=== PATIENT | male | born 1970 | race Hispanic/Latino ===

== ENCOUNTER 2018-02-12 07:50 | Emergency (ER) | payer OTHER ==
[~2018-02-12] VITALS: Ht 180.3 cm; Wt 93.0 kg
[~2018-02-12 07:50] MED LIST: CRESTOR PO; SYNTHROID200 MCG PO; VITAMIN D PO
--- OUTSIDE RECORDS SUMMARY | 2018-02-12 07:54 | XMS REPORT | Continuity of Care Document ---
Author Author [facility] Interface Address Unknown Phone Unavailable Problems Problem Status Onset Date Classification Date Reported Comments Source KUB Active 11/28/2017 [facility] N20.0 Active 06/02/2016 [facility] 592.0 - CALCULUS OF KID Active 01/14/2014 [facility] [place] Medications Medication Details Route Status Patient Instructions Ordering Provider Order Date Source Allergies, Adverse Reactions, Alerts Substance Category Reaction Severity Reaction type Status Date Reported Comments Source tequin Assertion nausea, fever, abd. cramps Propensity to adverse reactions to drug Active [facility] Immunizations Immunization Date Given Site Status Last Updated Comments Source Results Order Name Results Value Reference Range Date Interpretation Comments Source Abdomen AP DX Abdomen AP DX KUB: Small bilateral calyceal stones are unchanged compared to the previous KUB on 06/02/2016. There are small amorphous calcifications overlying the lower right paravertebral region. Gastrointestinal elmo in the cecal region are seen consistent with appendectomy. There is moderate fecal material in the right colon. The abdominal gas pattern is otherwise within normal limits. There are no significant osseous abnormalities. There is no other significant change. [id number] 11/28/2017 - - Read by: Dl Zamora MD Dictated Date/time: 11/28/17 11:23 Electronically Signed by: Dl Zamora MD 11/28/17 11:26 FINAL REPORT [facility] Abdomen AP DX Abdomen AP DX Study: Abdomen AP DX Clinical Indication: kidney stone; Comparison: Abdomen 03/06/[address] stone 03/05/2012 FINDINGS: Supine image demonstrates multiple small calcifications located to the right of the lower lumbar spine. Is likely represent calcified mesenteric lymph nodes at CT. There is a possible small left lower pole renal calculus. Bowel gas pattern is normal. The skeleton is normal. : [id number] 06/02/2016 - - Read by: Zafar Dos Santos MD Dictated Date/time: 06/02/16 15:11 Electronically Signed by: Zafar Dos Santos MD 06/02/16 15:14 FINAL REPORT [facility] Vital Signs Vital Sign Value Date Comments Source Encounters Location Location Details Encounter Type Encounter Number Reason For Visit Attending Provider ADM Date DC Date Status Source [facility] Outpatient [id number] Heribertotorres Garg 06/02/2016 06/03/2016 [facility] Procedures Procedure Code Date Perfomer Comments Source
--- OUTSIDE RECORDS SUMMARY | 2018-02-12 07:54 | XMS REPORT | Summary of Care ---
Author Author [facility] Organization [facility] Address Unknown Phone Unavailable Encounter HQ Encntr_alias(FIN) [id number] Date(s): 06/02/16 - 06/02/16 [facility] [address] [place] [address]- [phone] Discharge Disposition: Home or Self Care Attending Physician: Heriberto Garg MD Vital Signs No data available for this section Problem List No data available for this section Allergies, Adverse Reactions, Alerts Substance Reaction Severity Status NKDA Active tequin nausea Active fever abd. cramps Medications No data available for this section Results No data available for this section Immunizations No data available for this section Procedures No data available for this section Social History No data available for this section Assessment and Plan No data available for this section
[2018-02-12 08:18] LABS: BILIRUBIN,URINE NEGATIVE (NEGATIVE); CLARITY,URINE CLEAR (CLEAR); COLOR,URINE YELLOW (YELLOW); KETONES,URINE NEGATIVE (NEGATIVE); LEUKOCYTE ESTERASE ,URINE NEGATIVE (NEGATIVE); NITRITE,URINE NEGATIVE (NEGATIVE); PROTEIN,URINE DIPSTICK NEGATIVE (NEGATIVE); URINE UROBILINOGEN 0.2 mg/dL (0.2 - 1)
[2018-02-12] MEDS ORDERED: SODIUM CHLORIDE 0.9% 1000ML 1,000 ML IV STA (08:21)
[2018-02-12] MEDS ORDERED: KETOROLAC TROMETHAMINE 30 MG/ML VIAL IV ONE (08:30)
[2018-02-12] MEDS ORDERED: ONDANSETRON HCL INJ 2 MG/ML VIAL IV ONE (08:30)
[2018-02-12 08:32] LABS: BACTERIA,URINE FEW /HPF; EPITHELIAL CELLS,URINE FEW /LPF; WBC,URINE (MAN) 0-5 /HPF (0-5)
[2018-02-12 08:53] LABS: BASOPHILS # (AUTO) 0.1 (0.0-0.1); BASOPHILS % 0.8 % (0.0-1.0); EOSINOPHILS # (AUTO) 0.1 (0.0-0.4); HEMATOCRIT 44.9 % (38.2-49.6); HEMOGLOBIN 15.5 g/dL (14.0-18.0); LYMPHOCYTES # (AUTO) 1.3 (1.0-3.2); LYMPHOCYTES % 21.1 % (18.0-39.1); MEAN CORPUSCULAR HEMOGLOBIN 31.3 pg (28-32); MEAN CORPUSCULAR HGB CONC 34.5 g/dL (31-35); MEAN CORPUSCULAR VOLUME 90.5 fL (81-99); MONOCYTES # (AUTO) 0.7 (0.2-0.8); MONOCYTES % 10.9 % (4.4-11.3); NEUTROPHILS % 65.7 % (38.7-80.0); PLATELET COUNT 246 x10e3/uL (140-360); RED BLOOD COUNT 4.96 x10e6/uL (4.3-5.7); RED CELL DISTRIBUTION WIDTH 13.1 % (11.7-14.4)
--- NOTE | 2018-02-12 09:12 | Diagnostic Imaging Report ---
CT Abdomen and Pelvis without contrast INDICATION: Bilateral flank pain onset one week ago, renal calculi TECHNIQUE: Thin collimation axial images obtained from the diaphragm to the level of the pubic symphysis without nonionic intravenous contrast. Dose reduction techniques used: Automated exposure control, adjustment of the mAs and/or kVp according to patient size, standardized low-dose protocol, and/or iterative reconstruction technique. RADIATION DOSE: Total DLP: 486.75 mGy*cm Estimated effective dose: (DLP x 0.015 x size factor) mSv CTDIvol has been reviewed. It is below the limits set by the Radiation Protocol Committee (RPC). COMPARISON: None. ABDOMEN FINDINGS: Lung Bases: Clear. The heart is normal in size. Distal esophageal barksdale are mildly thickened. No hiatal hernia. Liver: Normal in attenuation without mass. Gallbladder: Present with a linear intraluminal calcification measuring 7 mm. No gallbladder wall thickening. No ductal dilatation. Pancreas: Normal attenuation without mass. Spleen: Normal size without mass. Adrenal Glands: The right adrenal gland is normal. The left adrenal gland contains a very low attenuating lesion measuring 1.2 x 1.1 cm. There are no associated calcifications. Kidneys: Right: Calculus in the upper pole measures 5 mm. There is no renal edema or perinephric inflammation. No cortical mass or hydronephrosis Left: Calculus in the lower pole measures 4 mm. No renal edema and perinephric inflammation. No cortical mass or hydronephrosis. There is a circumaortic left renal vein. Lymph Nodes: No enlarged abdominal or retroperitoneal lymph nodes. Aorta: Normal in diameter. PELVIS FINDINGS: Bowel: Stomach: Normal. Small Bowel: Normal in caliber with normal wall thickness. Large Bowel: Normal in caliber with normal wall thickness. There are chain sutures at the base of the cecum. Appendix: Absent. Bladder: Normal. Ureters: No ureteral dilatation or calculus.. No free fluid or fluid collection.. Bones: Unremarkable for age. Soft tissues: Fat-containing left inguinal hernia has an aperture of 10 mm. IMPRESSION: 1. Bilateral intrarenal calculi. No obstructive uropathy. No inflammation of the kidneys, ureters, or bladder. 2. No evidence for bowel obstruction or inflammation. 3. Cholelithiasis. 4. 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 Signed by: Dr. Jeni Savage MD on 02/12/2018 9:09 AM
[2018-02-12 09:17] LABS: ALANINE AMINOTRANSFERASE 33 IU/L (0-55); ALBUMIN 4.1 g/dL (3.5-5.0); ALBUMIN/GLOBULIN RATIO 1.3 (0.8-2.0); ALKALINE PHOSPHATASE 52 IU/L (40-150); BLOOD UREA NITROGEN 11 mg/dL (7-26); BUN/CREATININE RATIO 10 (6-25); CALCIUM 8.6 mg/dL (8.4-10.2); CARBON DIOXIDE 25 mmol/L (22-29); CHLORIDE 104 mmol/L (98-107); CREATININE, SERUM 1.06 mg/dL (0.72-1.25); EST GLOMERULAR FILTRATION RATE > 60 ML/MIN (60-); GLUCOSE 103 mg/dL (74-118); MAGNESIUM 2.2 MG/DL (1.3-2.1); SODIUM 137 mmol/L (136-145)
== END 2018-02-12 09:55 | disposition home or self-care (01) ==
LOC: ER 07:50
DX: M54.5 Low back pain (principal); S39.012A Strain of muscle, fascia and tendon of lower back, initial encounter
CPT/HCPCS: 36415; 74176; 80053; 81001; 83735; 85025; 99284; J1885; J2405; J7030